=== PATIENT | female | born 1960 | race Caucasian/White ===

== ENCOUNTER 2017-02-10 13:09 | Observation (INO) | payer MEDICAID ==
[2017-02-10 13:29] VITALS: BP 112/69; PULSE 77; RESP 18; TEMP 97; O2SAT 99
[2017-02-10] MEDS ORDERED: Sodium Chloride 0.9% 1,000 ML IV STA (14:14)
--- NOTE | 2017-02-10 14:16 | ED PDOC ---
HPI: Abdomen Time Seen by Provider: 02/10/17 14:00 Chief Complaint (Nursing): Abdominal Pain Chief Complaint (Provider): Right Lower Quadrant Abdominal Pain History Per: Patient History/Exam Limitations: no limitations Onset/Duration Of Symptoms: Days, Worse Since Outside of [place] travel?: No Current Symptoms Are (Timing): Constant Location Of Pain/Discomfort: RLQ Associated Symptoms: Fever, Chills, Nausea, Vomiting (x2 episodes; non bloody; non bilious), Loss Of Appetite. denies: Diarrhea, Urinary Symptoms Additional Complaint(s): Janene Hill, a 56 year old female, who has a past medical history of gastritis and a hernia presents to the ED with right lower quadrant abdominal pain, which she states started day before yesterday. The patient states that the pain is constant and worsening and sometimes radiates to her lower back. She reports that 2 weeks ago she had similar sympoms which spontaneously resolved after 2 days but she had no associated vomiting at that time.The patient reports today that she has had associated vomiting(x2 episodes, non bloody, non bilious),loss of appetite and nausea. She further stated that she took tylenol and drank seltzer water which offered minimal relief. Denies diarrhea, black and bloody stools, vaginal completes, urinary symptoms, recent travel,sick contacts, antibiotics. +subjective fever and chills. PMD: Dr. Hutchins Abnormal Vaginal Bleeding: No Past Medical History Reviewed: Historical Data, Nursing Documentation, Vital Signs Vital Signs: Last Vital Signs Temp 97 F L 02/10/17 13:26 Pulse 77 02/10/17 13:26 Resp 18 02/10/17 13:26 BP 112/69 02/10/17 13:26 Pulse Ox 99 02/10/17 19:27 - Medical History PMH: Gastritis Denies: Hiatal Hernia (Hernia) - Surgical History Surgical History: No Surg Hx - Family History Family History: States: Diabetes (Father had diabetes), Hypertension (Father had hypertension) - Home Medications Home Medications: Ambulatory Orders Medication Instructions Recorded Naproxen [Naprosyn] 1 tab PO BID PRN #60 tab 02/10/17 Ondansetron [Zofran] 4 mg PO Q8H PRN #30 tab 02/10/17 - Allergies Allergies/Adverse Reactions: Allergies Allergy/AdvReac Type Severity Reaction Status Date / Time No Known Allergies Allergy Verified 02/10/17 13:25 Review of Systems ROS Statement: Except As Marked, All Systems Reviewed And Found Negative Constitutional: Positive for: Fever (Positive for subjective fever), Chills ( Positive for subjective chills) Gastrointestinal: Positive for: Nausea, Vomiting (x2 episodes; non bloody; non bilious), Abdominal Pain (Right Lower Quadrant). Negative for: Diarrhea Genitourinary Female: Negative for: Dysuria, Frequency, Incontinence, Hematuria , Vaginal Discharge, Vaginal Bleeding Physical Exam - Reviewed Nursing Documentation Reviewed: Yes Vital Signs Reviewed: Yes - Physical Exam Appears: Positive for: Non-toxic, In Acute Distress (Mild Painful Distress) Head Exam: Positive for: ATRAUMATIC, NORMOCEPHALIC Skin: Positive for: Normal Color, Warm, Dry Eye Exam: Positive for: Normal appearance, EOMI, PERRL ENT: Positive for: Normal ENT Inspection Neck: Positive for: Normal, Painless ROM, Supple Respiratory: Positive for: Normal Breath Sounds. Negative for: Wheezing, Respiratory Distress Gastrointestinal/Abdominal: Positive for: Bowel Sounds, Soft, Tenderness (Right lower quadrant tenderness;Positive Mcburney's point tenderness;Negative gamboa' s sign.). Negative for: Mass, Distended, Guarding, Rebound Back: Positive for: Normal Inspection Extremity: Positive for: Normal ROM. Negative for: Tenderness, Deformity, Swelling Neurologic/Psych: Positive for: Alert, Oriented, Gait - Laboratory Results Result Diagrams: 02/10/17 15:20 02/10/17 15:20 - ECG O2 Sat by Pulse Oximetry: 99 (RA) Pulse Ox Interpretation: Normal Medical Decision Making Medical Decision Makin Initial Impression: 56 year old female presenting with right lower quadrant pain Differential: Ovarian Cyst/Mass, Appendicitis, Messenterisc Addenitis, Kidney stones, Enteritis Initial Plan: * Udip * Complete Metabolic Panel * CBC * NS 1000ml IV 1000mls/hr * Zofran 4mg IVP * Admit 14:15 * US Pelvis * Reevaluation Scribe Attestation Documented by Chelsea Leblanc acting as a scribe for Zo Monroe. Provider Attestation: All medical record entries made by the Scribe were at my direction and personally dictated by me. I have reviewed the chart and agree that the record accurately reflects my personal performance of the history, physical exam, medical decision making, and the department course for this patient. I have also personally directed, reviewed, and agree with the discharge instructions and disposition. ED OBSERVATION - Observation admission statement Patient is being placed in observation because:: Time intensive workup and serial exams of abdomen - Goals of Observation Goals of observation are:: Complete ER diagnostics, symptomatic relief, and initiate definitive care if possible. - Progress Note Progress Note: 1700 Stable Accession No. : [id number] Patient Name / ID : NOE MAHONEY / [id number] Exam Date : 02/10/2017 15:37:14 ( Approved ) Study Comment : Sex / Age : F / 56Y Creator : Amy Wick MD Dictator : Amy Wick MD [employer] Associate : [employer] Specialist : Amy Wick MD Approver2 : Report Date : 02/10/2017 16:16:45 My Comment : HISTORY: RIGHT pelvic pain COMPARISON: None available. TECHNIQUE: Transabdominal pelvic ultrasound FINDINGS: UTERUS: Measures 7.0 x 3.1 x 4.6 cm. Anteverted. 1.0 x 0.8 x 1.3 cm probable fundal fibroid. ENDOMETRIUM: Measures 4 mm in diameter. CERVIX: No gross evidence of cervical abnormality. RIGHT OVARY: Measures 1.3 x 1.4 x 1.3 cm. Blood flow is demonstrated. LEFT OVARY: Measures 1.8 x 1.5 x 1.6 cm. Blood flow is demonstrated. FREE FLUID: No significant free fluid noted. OTHER FINDINGS: None. IMPRESSION: 1.0 x 0.8 x 1.[address] fibroid. CT ordered for r/o appy On reeval 1630 pt still has some pain, but improved. Accession No. : [id number] Patient Name / ID : NOE MAHONEY / [id number] Exam Date : 02/10/2017 17:39:42 ( Approved ) Study Comment : Sex / Age : F / 56Y Creator : Amy Wick MD Dictator : Amy Wick MD Distribution Center Associate : [employer] Specialist : Amy Wick MD Approver2 : Report Date : 02/10/2017 18:32:57 My Comment : PROCEDURE: CT Abdomen and Pelvis with contrast HISTORY: rlq pain COMPARISON: None available. TECHNIQUE: Contrast dose: 95 mL Omnipaque 300 Radiation dose: Total exam DLP = 905.14 mGy-cm. This CT exam was performed using one or more of the following dose reduction techniques: Automated exposure control, adjustment of the mA and/or kV according to patient size, and/or use of iterative reconstruction technique. FINDINGS: LOWER THORAX: No visible consolidation, pleural effusion, or pneumothorax. LIVER: 11 mm left hepatic lobe hypodense lesion measures approximately 1 HU, consistent with a cyst. Mild hypoattenuation of the liver may reflect hepatic steatosis. GALLBLADDER AND BILE DUCTS: Unremarkable. PANCREAS: Unremarkable. SPLEEN: Unremarkable. ADRENALS: Unremarkable. KIDNEYS AND URETERS: The kidneys enhance symmetrically. Minimal fullness of the collecting systems of unclear significance. 2 mm calcification noted near the right UVJ (series 3, image 138) favored to represent phleboliths. Several additional phleboliths are noted. VASCULATURE: No aortic aneurysm. BOWEL: Stomach is nondistended. Lack of oral contrast limits evaluation for bowel pathology. Bowel loops appear within normal limits of caliber without evidence of obstruction. APPENDIX: The appendix appears within normal limits of caliber. No secondary signs of acute appendicitis. PERITONEUM: No significant free fluid. No definite free air. LYMPH NODES: No bulky adenopathy identified. BLADDER: Unremarkable. REPRODUCTIVE: Uterus is present. BONES: No acute osseous abnormality is detected. OTHER FINDINGS: None. IMPRESSION: The appendix appears within normal limits of caliber. No secondary signs of acute appendicitis. 11 mm left hepatic lobe hypodense lesion measures approximately 1 HU, consistent with a cyst. Mild hypoattenuation of the liver may reflect hepatic steatosis. Minimal fullness of the collecting systems of unclear significance. 2 mm calcification noted near the right UVJ favored to represent a phlebolith. Several additional phleboliths are noted. Additional incidental findings as above. 1900 On reeval pt feels better. DW pt findings and plan of care. Pt to f/u PMD or clinica within 2-3 days. LOLIS canas Disposition - Clinical Impression Clinical Impression: Abdominal pain, Fibroid - Disposition Disposition Time: 14:30 Condition: IMPROVED
[2017-02-10 15:25] LABS: BASO % 0.3 % (0.0-2.0); HEMATOCRIT 41.5 % (34.0-47.0); LYMPH # 1.6 K/uL (1.0-4.3); LYMPH % 14.8 % (20.0-40.0); MEAN CELL VOLUME 87.6 fl (81.0-99.0); MEAN CORPUSCULAR HEMOGLOBIN 29.7 pg (27.0-31.0); MEAN CORPUSCULAR HGB CONC 33.9 g/dL (33.0-37.0); MEAN PLATELET VOLUME 8.3 fl (7.2-11.7); MONO # 0.5 K/uL (0.0-0.8); MONO % 4.2 % (0.0-10.0); NEUT # 8.8 K/uL (1.8-7.0); NEUT % 80.7 % (50.0-75.0); RED CELL DISTRIBUTION WIDTH 13.7 % (11.5-14.5); WHITE BLOOD COUNT 10.9 K/uL (4.8-10.8)
[2017-02-10 15:36] LABS: ALB/GLOB RATIO 1.1 (1.0-2.1); ALKALINE PHOSPHATASE 87 U/L (38-126); ALT/SGPT 27 U/L (9-52); AST/SGOT 22 U/L (14-36); BILIRUBIN,TOTAL 0.4 mg/dl (0.2-1.3); BLOOD UREA NITROGEN 15 mg/dl (7-17); CALCIUM 9.3 mg/dL (8.4-10.2); CARBON DIOXIDE 27 mmol/L (22-30); CHLORIDE 100 mmol/L (98-107); GFR AFRICAN-AMERICAN > 60; GLUCOSE,RANDOM 101 mg/dL (65-105); POTASSIUM 4.2 MMOL/L (3.6-5.0); SODIUM 137 mmol/l (132-148); TOTAL PROTEIN 9.2 G/DL (6.3-8.2)
--- NOTE | 2017-02-10 16:18 | US ---
HISTORY: RIGHT pelvic pain COMPARISON: None available. TECHNIQUE: Transabdominal pelvic ultrasound FINDINGS: UTERUS: Measures 7.0 x 3.1 x 4.6 cm. Anteverted. 1.0 x 0.8 x 1.3 cm probable fundal fibroid. ENDOMETRIUM: Measures 4 mm in diameter. CERVIX: No gross evidence of cervical abnormality. RIGHT OVARY: Measures 1.3 x 1.4 x 1.3 cm. Blood flow is demonstrated. LEFT OVARY: Measures 1.8 x 1.5 x 1.6 cm. Blood flow is demonstrated. FREE FLUID: No significant free fluid noted. OTHER FINDINGS: None. IMPRESSION: 1.0 x 0.8 x 1.3 cm probable fundal fibroid.
--- NOTE | 2017-02-10 18:34 | CT ---
PROCEDURE: CT Abdomen and Pelvis with contrast HISTORY: rlq pain COMPARISON: None available. TECHNIQUE: Contrast dose: 95 mL Omnipaque 300 Radiation dose: Total exam DLP = 905.14 mGy-cm. This CT exam was performed using one or more of the following dose reduction techniques: Automated exposure control, adjustment of the mA and/or kV according to patient size, and/or use of iterative reconstruction technique. FINDINGS: LOWER THORAX: No visible consolidation, pleural effusion, or pneumothorax. LIVER: 11 mm left hepatic lobe hypodense lesion measures approximately 1 HU, consistent with a cyst. Mild hypoattenuation of the liver may reflect hepatic steatosis. GALLBLADDER AND BILE DUCTS: Unremarkable. PANCREAS: Unremarkable. SPLEEN: Unremarkable. ADRENALS: Unremarkable. KIDNEYS AND URETERS: The kidneys enhance symmetrically. Minimal fullness of the collecting systems of unclear significance. 2 mm calcification noted near the right UVJ (series 3, image 138) favored to represent phleboliths. Several additional phleboliths are noted. VASCULATURE: No aortic aneurysm. BOWEL: Stomach is nondistended. Lack of oral contrast limits evaluation for bowel pathology. Bowel loops appear within normal limits of caliber without evidence of obstruction. APPENDIX: The appendix appears within normal limits of caliber. No secondary signs of acute appendicitis. PERITONEUM: No significant free fluid. No definite free air. LYMPH NODES: No bulky adenopathy identified. BLADDER: Unremarkable. REPRODUCTIVE: Uterus is present. BONES: No acute osseous abnormality is detected. OTHER FINDINGS: None. IMPRESSION: The appendix appears within normal limits of caliber. No secondary signs of acute appendicitis. 11 mm left hepatic lobe hypodense lesion measures approximately 1 HU, consistent with a cyst. Mild hypoattenuation of the liver may reflect hepatic steatosis. Minimal fullness of the collecting systems of unclear significance. 2 mm calcification noted near the right UVJ favored to represent a phlebolith. Several additional phleboliths are noted. Additional incidental findings as above.
== END 2017-02-10 19:32 | disposition home or self-care (01) ==
LOC: H.ER 13:09 → H.EROBSV 14:15
PROVIDERS: ADMIT Emergency Medicine; ATTEND Emergency Medicine
DX: R10.31 Right lower quadrant pain (principal); D25.9 Leiomyoma of uterus, unspecified; K29.70 Gastritis, unspecified, without bleeding